=== PATIENT | male | born 1935 | race Caucasian/White ===

== ENCOUNTER 2017-04-23 16:45 | Emergency (ER) | payer OTHER ==
[~2017-04-23] VITALS: Ht 172.7 cm; Wt 83.2 kg
[~2017-04-23 16:45] MED LIST: ALLERGY10 M1 PO; AMLODIPINE BESY10 MG PO; ASPIR 8181 M1 PO; METOPROLOL SUC100 MG PO; PLAVIX75 MG PO; PROSCAR5 MG PO; SIMVASTATIN10 MG PO
[2017-04-23 17:17] LABS: HEMATOCRIT 38.8 % (38.0-50.0); MCH 25.9 PG (29.0-34.0); MCHC 32.7 G/DL (30.0-36.0); MEAN PLAT.VOLUME 10.1 uM^3 (9.0-12.4); PLATELET COUNT 204 K/uL (156-360); RBC DIS.WIDTH-CV 16.1 % (11.8-14.6); RBC DIS.WIDTH-SD 46.2 % (39-53); RED BLOOD COUNT 4.91 M/uL (4.00-5.50); WHITE BLOOD COUNT 6.8 K/uL (4.1-10.2)
[2017-04-23 17:32] LABS: CHLORIDE 108 mEq/L (99-109); POTASSIUM 3.8 mEq/L (3.7-5.4); SODIUM 139 mEq/L (136-147)
[2017-04-23 17:34] LABS: GLUCOSE 181 mg/dL (70-99)
[2017-04-23 17:35] LABS: ANION GAP 8 MEQ/L (2-14)
[2017-04-23 17:38] LABS: GFR ESTIMATE (CALCULATED) 48 mL/min/; UREA NITROGEN (BUN) 13 mg/dL (9-23)
[2017-04-23 17:40] LABS: LIPASE 26 U/L (1.0-51.0)
[2017-04-23 17:55] LABS: ALKALINE PHOSPHATASE 55 IU/L (3-129); TOTAL BILIRUBIN 0.4 mg/dL (0.0-1.0)
[2017-04-23] MEDS ORDERED: CIPRO500 MG PO (21:55)
[2017-04-23] MEDS ORDERED: FLAGYL500 MG PO (21:56)
[2017-04-23 22:27] VITALS: BP 145/81
== END 2017-04-23 22:27 | disposition home or self-care (01) ==
LOC: EME 16:45
DX: K52.9 Noninfective gastroenteritis and colitis, unspecified (principal); R10.9 Unspecified abdominal pain; K64.9 Unspecified hemorrhoids; I10 Essential (primary) hypertension; K21.9 Gastro-esophageal reflux disease without esophagitis; Z86.73 Personal history of transient ischemic attack (TIA), and cerebral infarction without residual deficits; Z85.038 Personal history of other malignant neoplasm of large intestine; Z87.442 Personal history of urinary calculi; Z90.49 Acquired absence of other specified parts of digestive tract
CPT/HCPCS: 74177; 80048; 80053; 83690; 85027; 86900; 86901; J2270

== ENCOUNTER 2017-05-04 17:06 | Inpatient (IN) | payer OTHER ==
[~2017-05-04] VITALS: Ht 172.7 cm; Wt 77.1 kg
[~2017-05-04 17:06] MED LIST changes: +CIPRO500 MG PO; +FLAGYL500 MG PO
[2017-05-04 18:18] LABS: HEMATOCRIT 39.5 % (38.0-50.0); MCH 25.6 PG (29.0-34.0); MCHC 31.9 G/DL (30.0-36.0); MCV 80.3 FL (86-99); MEAN PLAT.VOLUME 9.9 uM^3 (9.0-12.4); PLATELET COUNT 226 K/uL (156-360); RBC DIS.WIDTH-CV 16.4 % (11.8-14.6); RED BLOOD COUNT 4.92 M/uL (4.00-5.50); WHITE BLOOD COUNT 7.6 K/uL (4.1-10.2)
[2017-05-04 18:31] LABS: CHLORIDE 109 mEq/L (99-109); POTASSIUM 4.4 mEq/L (3.7-5.4); SODIUM 140 mEq/L (136-147)
[2017-05-04 18:34] LABS: GLUCOSE 133 mg/dL (70-99)
[2017-05-04 18:35] LABS: ANION GAP 10 MEQ/L (2-14); TOTAL BILIRUBIN 0.5 mg/dL (0.0-1.0)
[2017-05-04 18:37] LABS: ALKALINE PHOSPHATASE 52 IU/L (3-129); GFR ESTIMATE (CALCULATED) 44 mL/min/
[2017-05-04 18:38] LABS: UREA NITROGEN (BUN) 16 mg/dL (9-23)
[2017-05-04 23:00] LABS: ADD MIUA? YES; BILIRUBIN NEGATIVE; BLOOD NEGATIVE; COLOR YELLOW ((YELLOW)); GLUCOSE (STRIP) NEGATIVE; KETONES 5; LEUKOCYTES NEGATIVE; NITRITE NEGATIVE; PROTEIN (STRIP) 100; SPECIFIC GRAVITY 1.016 (1.000-1.030); UROBILINOGEN 0.2 MG/DL (0.2-1.0)
[2017-05-04 23:20] LABS: BACTERIA NONE SEEN /HPF; EPITHELIAL CELLS RARE /HPF; HYALINE CASTS 0-5 /LPF; MUCUS TRACE /LPF; RED BLOOD CELLS 0-5 /HPF (0-5); UCUL ADDED? NO; WHITE BLOOD CELLS 0-5 /HPF (0-5)
[2017-05-05] MEDS ORDERED: LO-DOSE ASPIRIN81 M1 PO (00:25)
[2017-05-05 05:59] LABS: EOSINOPHIL COUNT 0.2 K/uL (0-0.3); HEMATOCRIT 38.2 % (38.0-50.0); IMMATURE GRANULOCYTE (%) 0.5 % (0.0-0.7); INSTRUMENT ABS NEUTROPHIL CT 3.5 K/uL; LYMPHOCYTE COUNT 1.2 K/uL (1.0-2.8); MCH 25.6 PG (29.0-34.0); MCHC 31.7 G/DL (30.0-36.0); MCV 80.9 FL (86-99); MEAN PLAT.VOLUME 9.9 uM^3 (9.0-12.4); MONOCYTE (%) 11.8 % (3-12); MONOCYTE COUNT 0.7 K/uL (0-0.8); NEUTROPHIL (%) 62.3 % (45-76); NEUTROPHIL COUNT 3.5 K/uL (1.8-6.4); PLATELET COUNT 198 K/uL (156-360); RBC DIS.WIDTH-CV 16.4 % (11.8-14.6); RBC DIS.WIDTH-SD 48.3 % (39-53); RED BLOOD COUNT 4.72 M/uL (4.00-5.50); WHITE BLOOD COUNT 5.7 K/uL (4.1-10.2)
[2017-05-05 06:24] LABS: CHLORIDE 111 mEq/L (99-109); POTASSIUM 4.2 mEq/L (3.7-5.4); SODIUM 141 mEq/L (136-147)
[2017-05-05 06:26] LABS: GLUCOSE 114 mg/dL (70-99)
[2017-05-05 06:27] LABS: ANION GAP 9 MEQ/L (2-14)
[2017-05-05 06:30] LABS: GFR ESTIMATE (CALCULATED) 56 mL/min/
[2017-05-05 06:31] LABS: UREA NITROGEN (BUN) 13 mg/dL (9-23)
[2017-05-05 09:59] VITALS: BP 156/73
[2017-05-05 10:13] LABS: INTERNAL CONTROL VALID? YES
[2017-05-05 11:20] LABS: C DIFF TOXIN NEGATIVE (NEGATIVE)
[2017-05-05 11:21] LABS: PROBE CHECK PASS; SPECIMEN PROCESSING CONTROL PASS
[2017-05-05 12:32] VITALS: BP 142/72
[2017-05-05 17:00] VITALS: BP 136/74
[2017-05-06 00:02] VITALS: BP 144/70
[2017-05-06 07:20] VITALS: BP 137/70
[2017-05-06 10:25] LABS: HEMATOCRIT 38.4 % (38.0-50.0); MCH 26.1 PG (29.0-34.0); MCV 81.5 FL (86-99); MEAN PLAT.VOLUME 10.4 uM^3 (9.0-12.4); PLATELET COUNT 195 K/uL (156-360); RBC DIS.WIDTH-CV 16.3 % (11.8-14.6); RED BLOOD COUNT 4.71 M/uL (4.00-5.50)
[2017-05-06 10:50] LABS: ALKALINE PHOSPHATASE 57 IU/L (3-129); ANION GAP 8 MEQ/L (2-14); CHLORIDE 109 MEQ/L (99-109); GFR ESTIMATE (CALCULATED) 56 mL/min/; SAMPLE HEMOLYSIS CHECK 0; SAMPLE ICTERIC CHECK 0; SAMPLE LIPEMIA CHECK 0; SODIUM 140 MEQ/L (136-147); TOTAL BILIRUBIN 0.5 MG/DL (0.0-1.0); UREA NITROGEN (BUN) 8 mg/dL (9-23)
[2017-05-06 10:51] LABS: GLUCOSE 189 mg/dL (70-99)
[2017-05-06] MEDS ORDERED: FLAGYL500 MG PO (11:05)
[2017-05-06] MEDS ORDERED: CIPRO500 MG PO (11:05)
== END 2017-05-06 12:42 | disposition home or self-care (01) | DRG 392 ==
LOC: EME 17:06 → 4SOUTH 05-05 02:38 → EDOF 05-05 02:38 → 4SOUTH 05-05 08:29
PROVIDERS: Hospitalist
DX: K52.9 Noninfective gastroenteritis and colitis, unspecified (principal); N17.9 Acute kidney failure, unspecified; I10 Essential (primary) hypertension; E11.9 Type 2 diabetes mellitus without complications; K21.9 Gastro-esophageal reflux disease without esophagitis; Z85.038 Personal history of other malignant neoplasm of large intestine; E78.5 Hyperlipidemia, unspecified; Z95.0 Presence of cardiac pacemaker; Z86.73 Personal history of transient ischemic attack (TIA), and cerebral infarction without residual deficits
CPT/HCPCS: 74176; 80048; 80053; 81003; 82272; 85025; 85027; 87493; 99281; 99284; J1644; J2270; J2405; J2543; J7030; J7050

== ENCOUNTER 2017-05-25 05:39 | Inpatient (IN) | payer OTHER ==
[~2017-05-25] VITALS: Ht 172.7 cm; Wt 73.8 kg
[~2017-05-25 05:39] MED LIST changes: +LO-DOSE ASPIRIN81 M1 PO; -METOPROLOL SUC100 MG PO; +METOPROLOL SUCC25 MG PO
[2017-05-25 06:38] LABS: EOSINOPHIL (%) 2.1 % (0-5); EOSINOPHIL COUNT 0.1 K/uL (0-0.3); HEMATOCRIT 37.5 % (38.0-50.0); IMMATURE GRANULOCYTE (%) 0.2 % (0.0-0.7); INSTRUMENT ABS NEUTROPHIL CT 3.8 K/uL; LYMPHOCYTE COUNT 0.8 K/uL (1.0-2.8); MCH 25.9 PG (29.0-34.0); MCHC 32.3 G/DL (30.0-36.0); MCV 80.1 FL (86-99); MEAN PLAT.VOLUME 10.4 uM^3 (9.0-12.4); MONOCYTE (%) 10.5 % (3-12); MONOCYTE COUNT 0.6 K/uL (0-0.8); NEUTROPHIL (%) 72.1 % (45-76); NEUTROPHIL COUNT 3.8 K/uL (1.8-6.4); PLATELET COUNT 190 K/uL (156-360); RBC DIS.WIDTH-CV 16.4 % (11.8-14.6); RBC DIS.WIDTH-SD 47.8 % (39-53); RED BLOOD COUNT 4.68 M/uL (4.00-5.50); WHITE BLOOD COUNT 5.3 K/uL (4.1-10.2)
[2017-05-25 07:08] LABS: ALKALINE PHOSPHATASE 45 IU/L (3-129); ANION GAP 9 MEQ/L (2-14); CHLORIDE 109 MEQ/L (99-109); GFR ESTIMATE (CALCULATED) > 59 mL/min/; GLUCOSE 176 mg/dL (70-99); LIPASE 31 U/L (1.0-51.0); POTASSIUM 3.3 MEQ/L (3.7-5.4); SAMPLE HEMOLYSIS CHECK 0; SAMPLE ICTERIC CHECK 0; SAMPLE LIPEMIA CHECK 0; SODIUM 140 MEQ/L (136-147); TOTAL BILIRUBIN 0.4 MG/DL (0.0-1.0); UREA NITROGEN (BUN) 13 mg/dL (9-23)
[2017-05-25 15:03] VITALS: BP 162/75
[2017-05-25 19:38] VITALS: BP 133/68
[2017-05-25 20:03] LABS: INTERNAL CONTROL VALID? YES
[2017-05-25 20:33] LABS: C DIFF TOXIN NEGATIVE (NEGATIVE)
[2017-05-25 20:35] LABS: PROBE CHECK PASS; SPECIMEN PROCESSING CONTROL PASS
[2017-05-25 23:34] VITALS: BP 143/67
[2017-05-26 04:00] VITALS: BP 140/71
[2017-05-26 06:10] LABS: HEMATOCRIT 36.6 % (38.0-50.0); MCH 26.3 PG (29.0-34.0); MCHC 32.8 G/DL (30.0-36.0); MCV 80.1 FL (86-99); MEAN PLAT.VOLUME 10.9 uM^3 (9.0-12.4); PLATELET COUNT 175 K/uL (156-360); RBC DIS.WIDTH-CV 16.4 % (11.8-14.6); RBC DIS.WIDTH-SD 47.7 % (39-53); RED BLOOD COUNT 4.57 M/uL (4.00-5.50); WHITE BLOOD COUNT 5.2 K/uL (4.1-10.2)
[2017-05-26 06:39] LABS: ANION GAP 7 MEQ/L (2-14); CHLORIDE 107 MEQ/L (99-109); GFR ESTIMATE (CALCULATED) > 59 mL/min/; GLUCOSE 123 mg/dL (70-99); POTASSIUM 4.1 MEQ/L (3.7-5.4); SAMPLE HEMOLYSIS CHECK 0; SAMPLE ICTERIC CHECK 0; SAMPLE LIPEMIA CHECK 0; SODIUM 138 MEQ/L (136-147); UREA NITROGEN (BUN) 7 mg/dL (9-23)
[2017-05-26 08:06] VITALS: BP 138/68
[2017-05-26 14:58] VITALS: BP 140/65
[2017-05-26 20:05] VITALS: BP 138/67
[2017-05-27 04:00] VITALS: BP 157/77
[2017-05-27 07:30] VITALS: BP 140/76
[2017-05-27 09:08] LABS: HEMATOCRIT 41.9 % (38.0-50.0); MCH 25.9 PG (29.0-34.0); MCHC 32.2 G/DL (30.0-36.0); MCV 80.4 FL (86-99); MEAN PLAT.VOLUME 10.3 uM^3 (9.0-12.4); PLATELET COUNT 218 K/uL (156-360); RBC DIS.WIDTH-CV 16.3 % (11.8-14.6); RBC DIS.WIDTH-SD 47.7 % (39-53); RED BLOOD COUNT 5.21 M/uL (4.00-5.50); WHITE BLOOD COUNT 6.8 K/uL (4.1-10.2)
[2017-05-27 09:34] LABS: ANION GAP 9 MEQ/L (2-14); CHLORIDE 104 MEQ/L (99-109); GFR ESTIMATE (CALCULATED) > 59 mL/min/; GLUCOSE 144 mg/dL (70-99); MAGNESIUM 1.7 mg/dl (1.3-2.7); SAMPLE HEMOLYSIS CHECK 0; SAMPLE ICTERIC CHECK 0; SAMPLE LIPEMIA CHECK 0; SODIUM 136 MEQ/L (136-147); UREA NITROGEN (BUN) 7 mg/dL (9-23)
[2017-05-27 12:50] VITALS: BP 107/52
[2017-05-27 15:14] VITALS: BP 123/59
[2017-05-27 20:10] VITALS: BP 119/60
[2017-05-28 00:42] VITALS: BP 129/63
[2017-05-28 04:15] VITALS: BP 134/66
[2017-05-28 08:13] VITALS: BP 131/69
[2017-05-28 08:59] LABS: HEMATOCRIT 38.2 % (38.0-50.0); MCH 26.8 PG (29.0-34.0); MCHC 33.2 G/DL (30.0-36.0); MCV 80.6 FL (86-99); MEAN PLAT.VOLUME 11.1 uM^3 (9.0-12.4); PLATELET COUNT 188 K/uL (156-360); RBC DIS.WIDTH-CV 16.6 % (11.8-14.6); RED BLOOD COUNT 4.74 M/uL (4.00-5.50); WHITE BLOOD COUNT 4.6 K/uL (4.1-10.2)
[2017-05-28 09:21] LABS: ANION GAP 10 MEQ/L (2-14); CHLORIDE 105 MEQ/L (99-109); GFR ESTIMATE (CALCULATED) > 59 mL/min/; GLUCOSE 145 mg/dL (70-99); SAMPLE HEMOLYSIS CHECK 0; SAMPLE ICTERIC CHECK 0; SAMPLE LIPEMIA CHECK 0; SODIUM 136 MEQ/L (136-147); UREA NITROGEN (BUN) 7 mg/dL (9-23)
[2017-05-28 12:00] VITALS: BP 144/71
[2017-05-28 16:00] VITALS: BP 137/68
[2017-05-28 23:37] VITALS: BP 145/72
[2017-05-29 08:25] VITALS: BP 142/81
[2017-05-29 18:04] VITALS: BP 132/66
[2017-05-30 00:15] VITALS: BP 142/73
[2017-05-30 06:34] LABS: MCH 26.3 PG (29.0-34.0); MCHC 32.9 G/DL (30.0-36.0); MEAN PLAT.VOLUME 10.7 uM^3 (9.0-12.4); PLATELET COUNT 217 K/uL (156-360); RBC DIS.WIDTH-CV 16.9 % (11.8-14.6); RBC DIS.WIDTH-SD 49.3 % (39-53); RED BLOOD COUNT 4.75 M/uL (4.00-5.50); WHITE BLOOD COUNT 6.3 K/uL (4.1-10.2)
[2017-05-30 06:45] VITALS: BP 136/76
[2017-05-30 06:57] LABS: ALKALINE PHOSPHATASE 43 IU/L (3-129); ANION GAP 8 MEQ/L (2-14); CHLORIDE 102 MEQ/L (99-109); GFR ESTIMATE (CALCULATED) > 59 mL/min/; GLUCOSE 119 mg/dL (70-99); MAGNESIUM 1.7 mg/dl (1.3-2.7); POTASSIUM 4.1 MEQ/L (3.7-5.4); SAMPLE HEMOLYSIS CHECK 0; SAMPLE ICTERIC CHECK 0; SAMPLE LIPEMIA CHECK 0; SODIUM 133 MEQ/L (136-147); TOTAL BILIRUBIN 0.4 MG/DL (0.0-1.0); UREA NITROGEN (BUN) 8 mg/dL (9-23)
[2017-05-30 15:00] VITALS: BP 132/72
[2017-05-30 18:44] VITALS: BP 156/75
[2017-05-30 23:23] VITALS: BP 128/67
[2017-05-31 06:13] LABS: HEMATOCRIT 36.8 % (38.0-50.0); MCH 25.7 PG (29.0-34.0); MCHC 31.8 G/DL (30.0-36.0); MCV 80.9 FL (86-99); MEAN PLAT.VOLUME 10.9 uM^3 (9.0-12.4); PLATELET COUNT 206 K/uL (156-360); RBC DIS.WIDTH-CV 16.6 % (11.8-14.6); RBC DIS.WIDTH-SD 49.1 % (39-53); RED BLOOD COUNT 4.55 M/uL (4.00-5.50); WHITE BLOOD COUNT 7.3 K/uL (4.1-10.2)
[2017-05-31 06:38] LABS: ANION GAP 9 MEQ/L (2-14); CHLORIDE 104 MEQ/L (99-109); GFR ESTIMATE (CALCULATED) > 59 mL/min/; GLUCOSE 124 mg/dL (70-99); POTASSIUM 4.6 MEQ/L (3.7-5.4); SAMPLE HEMOLYSIS CHECK 0; SAMPLE ICTERIC CHECK 0; SAMPLE LIPEMIA CHECK 0; SODIUM 136 MEQ/L (136-147); UREA NITROGEN (BUN) 12 mg/dL (9-23)
[2017-05-31 07:30] VITALS: BP 147/71
[2017-05-31 11:27] LABS: C DIFF TOXIN ND (NEGATIVE)
[2017-05-31 15:25] VITALS: BP 144/73
[2017-05-31 23:03] VITALS: BP 133/72
[2017-06-01 06:24] LABS: HEMATOCRIT 37.8 % (38.0-50.0); MCH 25.8 PG (29.0-34.0); MCHC 32.5 G/DL (30.0-36.0); MCV 79.4 FL (86-99); MEAN PLAT.VOLUME 10.7 uM^3 (9.0-12.4); PLATELET COUNT 210 K/uL (156-360); RBC DIS.WIDTH-CV 16.7 % (11.8-14.6); RBC DIS.WIDTH-SD 48.1 % (39-53); RED BLOOD COUNT 4.76 M/uL (4.00-5.50)
[2017-06-01 06:52] LABS: ALKALINE PHOSPHATASE 40 IU/L (3-129); ANION GAP 9 MEQ/L (2-14); CHLORIDE 102 MEQ/L (99-109); DIRECT BILIRUBIN 0.1 mg/dL (0.0-0.3); GFR ESTIMATE (CALCULATED) > 59 mL/min/; GLUCOSE 114 mg/dL (70-99); MAGNESIUM 1.7 mg/dl (1.3-2.7); POTASSIUM 4.3 MEQ/L (3.7-5.4); PREALBUMIN 16.9 mg/dL (10-40); SAMPLE HEMOLYSIS CHECK 0; SAMPLE ICTERIC CHECK 0; SAMPLE LIPEMIA CHECK 0; SODIUM 134 MEQ/L (136-147); TOTAL BILIRUBIN 0.4 MG/DL (0.0-1.0); TRIGLYCERIDES 115 MG/DL (Normal: <150); UREA NITROGEN (BUN) 11 mg/dL (9-23)
[2017-06-01 07:26] VITALS: BP 128/68
[2017-06-01 16:00] VITALS: BP 137/70
[2017-06-02 06:33] LABS: HEMATOCRIT 37.8 % (38.0-50.0); MCH 25.8 PG (29.0-34.0); MCHC 32.3 G/DL (30.0-36.0); MCV 80.1 FL (86-99); MEAN PLAT.VOLUME 10.4 uM^3 (9.0-12.4); PLATELET COUNT 208 K/uL (156-360); RBC DIS.WIDTH-CV 16.7 % (11.8-14.6); RED BLOOD COUNT 4.72 M/uL (4.00-5.50); WHITE BLOOD COUNT 8.6 K/uL (4.1-10.2)
[2017-06-02 06:35] VITALS: BP 146/78
[2017-06-02 07:22] LABS: ALKALINE PHOSPHATASE 35 IU/L (3-129); ANION GAP 9 MEQ/L (2-14); CHLORIDE 104 MEQ/L (99-109); GFR ESTIMATE (CALCULATED) > 59 mL/min/; GLUCOSE 134 mg/dL (70-99); MAGNESIUM 1.8 mg/dl (1.3-2.7); POTASSIUM 3.9 MEQ/L (3.7-5.4); SAMPLE HEMOLYSIS CHECK 0; SAMPLE ICTERIC CHECK 0; SAMPLE LIPEMIA CHECK 0; SODIUM 136 MEQ/L (136-147); TOTAL BILIRUBIN 0.4 MG/DL (0.0-1.0); UREA NITROGEN (BUN) 14 mg/dL (9-23)
[2017-06-02 10:35] VITALS: BP 131/71
[2017-06-02 14:55] VITALS: BP 125/76
[2017-06-02 20:19] VITALS: BP 137/72
[2017-06-02 22:24] VITALS: BP 127/61
[2017-06-03 07:26] LABS: ANION GAP 10 MEQ/L (2-14); CHLORIDE 106 MEQ/L (99-109); GFR ESTIMATE (CALCULATED) > 59 mL/min/; GLUCOSE 120 mg/dL (70-99); POTASSIUM 3.8 MEQ/L (3.7-5.4); SAMPLE HEMOLYSIS CHECK 0; SAMPLE ICTERIC CHECK 0; SAMPLE LIPEMIA CHECK 0; SODIUM 140 MEQ/L (136-147); UREA NITROGEN (BUN) 15 mg/dL (9-23)
[2017-06-03 07:27] LABS: MAGNESIUM 2.2 mg/dl (1.3-2.7)
[2017-06-03 07:35] VITALS: BP 144/74
[2017-06-03 10:40] VITALS: BP 149/82
[2017-06-03 15:40] VITALS: BP 142/69
[2017-06-04 08:26] LABS: ANION GAP 9 MEQ/L (2-14); CHLORIDE 108 MEQ/L (99-109); GFR ESTIMATE (CALCULATED) > 59 mL/min/; GLUCOSE 154 mg/dL (70-99); MAGNESIUM 2.1 mg/dl (1.3-2.7); POTASSIUM 4.1 MEQ/L (3.7-5.4); SAMPLE HEMOLYSIS CHECK 0; SAMPLE ICTERIC CHECK 0; SAMPLE LIPEMIA CHECK 0; SODIUM 139 MEQ/L (136-147); UREA NITROGEN (BUN) 16 mg/dL (9-23)
[2017-06-04 08:32] VITALS: BP 141/73
[2017-06-04 15:57] VITALS: BP 115/57
[2017-06-04 19:35] VITALS: BP 133/76
[2017-06-05 04:50] VITALS: BP 121/69
[2017-06-05 06:44] LABS: HEMATOCRIT 38.7 % (38.0-50.0); MCH 25.7 PG (29.0-34.0); MCV 80.1 FL (86-99); MEAN PLAT.VOLUME 10.5 uM^3 (9.0-12.4); PLATELET COUNT 197 K/uL (156-360); RBC DIS.WIDTH-CV 16.7 % (11.8-14.6); RBC DIS.WIDTH-SD 48.5 % (39-53); RED BLOOD COUNT 4.83 M/uL (4.00-5.50); WHITE BLOOD COUNT 7.4 K/uL (4.1-10.2)
[2017-06-05 07:09] LABS: ANION GAP 9 MEQ/L (2-14); CHLORIDE 108 MEQ/L (99-109); GFR ESTIMATE (CALCULATED) > 59 mL/min/; GLUCOSE 192 mg/dL (70-99); MAGNESIUM 2.1 mg/dl (1.3-2.7); POTASSIUM 4.1 MEQ/L (3.7-5.4); SAMPLE HEMOLYSIS CHECK 0; SAMPLE ICTERIC CHECK 0; SAMPLE LIPEMIA CHECK 0; SODIUM 138 MEQ/L (136-147); UREA NITROGEN (BUN) 19 mg/dL (9-23)
[2017-06-05 07:41] VITALS: BP 130/67
[2017-06-05 11:52] VITALS: BP 133/65
[2017-06-05 15:30] VITALS: BP 138/67
[2017-06-06 00:42] VITALS: BP 141/67
[2017-06-06 07:02] LABS: ANION GAP 7 MEQ/L (2-14); CHLORIDE 110 MEQ/L (99-109); GFR ESTIMATE (CALCULATED) > 59 mL/min/; GLUCOSE 143 mg/dL (70-99); MAGNESIUM 2.1 mg/dl (1.3-2.7); POTASSIUM 4.6 MEQ/L (3.7-5.4); SAMPLE HEMOLYSIS CHECK 0; SAMPLE ICTERIC CHECK 0; SAMPLE LIPEMIA CHECK 0; SODIUM 139 MEQ/L (136-147); UREA NITROGEN (BUN) 17 mg/dL (9-23)
[2017-06-06 07:30] VITALS: BP 131/69
[2017-06-06 17:57] VITALS: BP 120/58
[2017-06-06 23:35] VITALS: BP 124/63
[2017-06-07 05:58] LABS: EOSINOPHIL (%) 1.4 % (0-5); EOSINOPHIL COUNT 0.1 K/uL (0-0.3); HEMATOCRIT 38.2 % (38.0-50.0); IMMATURE GRANULOCYTE (%) 0.5 % (0.0-0.7); INSTRUMENT ABS NEUTROPHIL CT 6.8 K/uL; LYMPHOCYTE COUNT 0.7 K/uL (1.0-2.8); MCH 26.9 PG (29.0-34.0); MCV 81.4 FL (86-99); MEAN PLAT.VOLUME 10.9 uM^3 (9.0-12.4); MONOCYTE (%) 9.6 % (3-12); MONOCYTE COUNT 0.8 K/uL (0-0.8); NEUTROPHIL (%) 79.5 % (45-76); NEUTROPHIL COUNT 6.8 K/uL (1.8-6.4); PLATELET COUNT 202 K/uL (156-360); RBC DIS.WIDTH-CV 17.1 % (11.8-14.6); RBC DIS.WIDTH-SD 50.2 % (39-53); RED BLOOD COUNT 4.69 M/uL (4.00-5.50); WHITE BLOOD COUNT 8.5 K/uL (4.1-10.2)
[2017-06-07 06:21] LABS: ANION GAP 7 MEQ/L (2-14); CHLORIDE 109 MEQ/L (99-109); GFR ESTIMATE (CALCULATED) > 59 mL/min/; GLUCOSE 146 mg/dL (70-99); MAGNESIUM 2.2 mg/dl (1.3-2.7); POTASSIUM 4.6 MEQ/L (3.7-5.4); SAMPLE HEMOLYSIS CHECK 0; SAMPLE ICTERIC CHECK 0; SAMPLE LIPEMIA CHECK 0; SODIUM 139 MEQ/L (136-147); UREA NITROGEN (BUN) 20 mg/dL (9-23)
[2017-06-07 07:32] VITALS: BP 128/67
[2017-06-07 14:43] LABS: C DIFF TOXIN ND (NEGATIVE)
[2017-06-07 16:27] VITALS: BP 140/73
[2017-06-07 22:15] VITALS: BP 145/77
[2017-06-08 06:51] LABS: EOSINOPHIL (%) 0 % (0-5); HEMATOCRIT 33.2 % (38.0-50.0); IMMATURE GRANULOCYTE (%) 0.6 % (0.0-0.7); IMMATURE GRANULOCYTE COUNT 0.1 K/uL; INSTRUMENT ABS NEUTROPHIL CT 12.1 K/uL; LYMPHOCYTE COUNT 0.3 K/uL (1.0-2.8); MCH 26.2 PG (29.0-34.0); MCHC 32.8 G/DL (30.0-36.0); MCV 79.8 FL (86-99); MEAN PLAT.VOLUME 11.1 uM^3 (9.0-12.4); MONOCYTE (%) 1.8 % (3-12); MONOCYTE COUNT 0.2 K/uL (0-0.8); NEUTROPHIL (%) 95.4 % (45-76); NEUTROPHIL COUNT 12.1 K/uL (1.8-6.4); PLATELET COUNT 194 K/uL (156-360); RBC DIS.WIDTH-CV 16.4 % (11.8-14.6); RED BLOOD COUNT 4.16 M/uL (4.00-5.50); WHITE BLOOD COUNT 12.7 K/uL (4.1-10.2)
[2017-06-08 07:17] VITALS: BP 121/68
[2017-06-08 07:22] LABS: ANION GAP 10 MEQ/L (2-14); CHLORIDE 107 MEQ/L (99-109); DIRECT BILIRUBIN 0.1 mg/dL (0.0-0.3); GFR ESTIMATE (CALCULATED) > 59 mL/min/; GLUCOSE 215 mg/dL (70-99); PREALBUMIN 14.9 mg/dL (10-40); SAMPLE HEMOLYSIS CHECK 0; SAMPLE ICTERIC CHECK 0; SAMPLE LIPEMIA CHECK 0; SODIUM 136 MEQ/L (136-147); TOTAL BILIRUBIN 0.4 MG/DL (0.0-1.0); TRIGLYCERIDES 107 MG/DL (Normal: <150); UREA NITROGEN (BUN) 22 mg/dL (9-23)
[2017-06-08 07:23] LABS: ALKALINE PHOSPHATASE 66 IU/L (3-129)
[2017-06-08 15:14] VITALS: BP 127/67
[2017-06-08 23:21] VITALS: BP 125/61
[2017-06-09 06:37] LABS: HEMATOCRIT 32.7 % (38.0-50.0); MCH 26.9 PG (29.0-34.0); MCHC 33.3 G/DL (30.0-36.0); MCV 80.7 FL (86-99); MEAN PLAT.VOLUME 11.6 uM^3 (9.0-12.4); PLATELET COUNT 221 K/uL (156-360); RBC DIS.WIDTH-CV 16.9 % (11.8-14.6); RBC DIS.WIDTH-SD 49.2 % (39-53); RED BLOOD COUNT 4.05 M/uL (4.00-5.50); WHITE BLOOD COUNT 14.7 K/uL (4.1-10.2)
[2017-06-09 07:01] LABS: ANION GAP 8 MEQ/L (2-14); CHLORIDE 107 MEQ/L (99-109); GFR ESTIMATE (CALCULATED) > 59 mL/min/; GLUCOSE 234 mg/dL (70-99); MAGNESIUM 2.1 mg/dl (1.3-2.7); SAMPLE HEMOLYSIS CHECK 0; SAMPLE ICTERIC CHECK 0; SAMPLE LIPEMIA CHECK 0; SODIUM 138 MEQ/L (136-147); UREA NITROGEN (BUN) 26 mg/dL (9-23)
[2017-06-09 08:14] VITALS: BP 135/67
[2017-06-09 08:14] LABS: INTERNAL CONTROL VALID? YES
[2017-06-09 08:54] LABS: C DIFF TOXIN ND (NEGATIVE)
[2017-06-09 10:46] LABS: C DIFF TOXIN NEGATIVE (NEGATIVE)
[2017-06-09 10:48] LABS: PROBE CHECK PASS; SPECIMEN PROCESSING CONTROL PASS
[2017-06-09 11:24] LABS: URINE UREA NITROGEN 15246 MG/24 HR
[2017-06-09 16:33] VITALS: BP 128/61
[2017-06-09 23:17] VITALS: BP 137/71
[2017-06-10 07:07] LABS: ANION GAP 10 MEQ/L (2-14); CHLORIDE 108 MEQ/L (99-109); GFR ESTIMATE (CALCULATED) > 59 mL/min/; GLUCOSE 238 mg/dL (70-99); MAGNESIUM 2.1 mg/dl (1.3-2.7); POTASSIUM 4.7 MEQ/L (3.7-5.4); SAMPLE HEMOLYSIS CHECK 0; SAMPLE ICTERIC CHECK 0; SAMPLE LIPEMIA CHECK 0; SODIUM 139 MEQ/L (136-147); UREA NITROGEN (BUN) 27 mg/dL (9-23)
[2017-06-10 07:25] VITALS: BP 133/64
[2017-06-10 08:38] LABS: MCH 26.4 PG (29.0-34.0); MCHC 32.9 G/DL (30.0-36.0); MCV 80.2 FL (86-99); MEAN PLAT.VOLUME 11.1 uM^3 (9.0-12.4); PLATELET COUNT 240 K/uL (156-360); RBC DIS.WIDTH-CV 16.9 % (11.8-14.6); RED BLOOD COUNT 4.24 M/uL (4.00-5.50); WHITE BLOOD COUNT 14.8 K/uL (4.1-10.2)
[2017-06-10 16:43] VITALS: BP 151/77
[2017-06-10 23:38] VITALS: BP 133/71
[2017-06-11 07:22] LABS: ANION GAP 10 MEQ/L (2-14); CHLORIDE 106 MEQ/L (99-109); GFR ESTIMATE (CALCULATED) > 59 mL/min/; GLUCOSE 259 mg/dL (70-99); MAGNESIUM 2.1 mg/dl (1.3-2.7); POTASSIUM 4.2 MEQ/L (3.7-5.4); SAMPLE HEMOLYSIS CHECK 0; SAMPLE ICTERIC CHECK 0; SAMPLE LIPEMIA CHECK 0; SODIUM 139 MEQ/L (136-147); UREA NITROGEN (BUN) 32 mg/dL (9-23)
[2017-06-11 07:39] VITALS: BP 144/65
[2017-06-11 15:48] VITALS: BP 178/87
[2017-06-11 23:43] VITALS: BP 147/75
[2017-06-12 06:31] LABS: EOSINOPHIL (%) 0 % (0-5); HEMATOCRIT 36.3 % (38.0-50.0); IMMATURE GRANULOCYTE COUNT 0.2 K/uL; INSTRUMENT ABS NEUTROPHIL CT 18.4 K/uL; LYMPHOCYTE COUNT 0.4 K/uL (1.0-2.8); MCHC 32.5 G/DL (30.0-36.0); MEAN PLAT.VOLUME 11.5 uM^3 (9.0-12.4); MONOCYTE (%) 4.9 % (3-12); NEUTROPHIL (%) 91.8 % (45-76); NEUTROPHIL COUNT 18.4 K/uL (1.8-6.4); PLATELET COUNT 282 K/uL (156-360); RBC DIS.WIDTH-CV 16.7 % (11.8-14.6); RBC DIS.WIDTH-SD 47.9 % (39-53); RED BLOOD COUNT 4.54 M/uL (4.00-5.50)
[2017-06-12 06:59] LABS: ANION GAP 11 MEQ/L (2-14); CHLORIDE 104 MEQ/L (99-109); GFR ESTIMATE (CALCULATED) > 59 mL/min/; GLUCOSE 192 mg/dL (70-99); MAGNESIUM 1.8 mg/dl (1.3-2.7); POTASSIUM 4.2 MEQ/L (3.7-5.4); SAMPLE HEMOLYSIS CHECK 0; SAMPLE ICTERIC CHECK 0; SAMPLE LIPEMIA CHECK 0; SODIUM 140 MEQ/L (136-147); UREA NITROGEN (BUN) 25 mg/dL (9-23)
[2017-06-12 07:19] VITALS: BP 146/70
[2017-06-12 15:00] VITALS: BP 137/67
[2017-06-13 00:04] VITALS: BP 146/71
[2017-06-13 06:51] LABS: ALKALINE PHOSPHATASE 78 IU/L (3-129); ANION GAP 9 MEQ/L (2-14); CHLORIDE 101 MEQ/L (99-109); GFR ESTIMATE (CALCULATED) > 59 mL/min/; GLUCOSE 174 mg/dL (70-99); POTASSIUM 3.8 MEQ/L (3.7-5.4); SAMPLE HEMOLYSIS CHECK 0; SAMPLE ICTERIC CHECK 0; SAMPLE LIPEMIA CHECK 0; SODIUM 135 MEQ/L (136-147); UREA NITROGEN (BUN) 19 mg/dL (9-23)
[2017-06-13 06:52] LABS: ALKALINE PHOSPHATASE 69 IU/L (3-129); ANION GAP 8 MEQ/L (2-14); CHLORIDE 102 MEQ/L (99-109); DIRECT BILIRUBIN 0.1 mg/dL (0.0-0.3); GFR ESTIMATE (CALCULATED) > 59 mL/min/; GLUCOSE 172 mg/dL (70-99); MAGNESIUM 1.7 mg/dl (1.3-2.7); POTASSIUM 3.9 MEQ/L (3.7-5.4); PREALBUMIN 16.4 mg/dL (10-40); SAMPLE HEMOLYSIS CHECK 0; SAMPLE ICTERIC CHECK 0; SAMPLE LIPEMIA CHECK 0; SODIUM 136 MEQ/L (136-147); TOTAL BILIRUBIN 0.4 MG/DL (0.0-1.0); TOTAL BILIRUBIN 0.5 MG/DL (0.0-1.0); TRIGLYCERIDES 166 MG/DL (Normal: <150); UREA NITROGEN (BUN) 18 mg/dL (9-23)
[2017-06-13 08:23] VITALS: BP 142/68
[2017-06-14 00:15] VITALS: BP 140/66
[2017-06-14 06:13] LABS: MCHC 33.8 G/DL (30.0-36.0); MCV 79.8 FL (86-99); MEAN PLAT.VOLUME 11.2 uM^3 (9.0-12.4); PLATELET COUNT 248 K/uL (156-360); RBC DIS.WIDTH-CV 16.8 % (11.8-14.6); RBC DIS.WIDTH-SD 47.9 % (39-53); RED BLOOD COUNT 4.26 M/uL (4.00-5.50); WHITE BLOOD COUNT 21.5 K/uL (4.1-10.2)
[2017-06-14 06:39] LABS: ANION GAP 7 MEQ/L (2-14); CHLORIDE 102 MEQ/L (99-109); GFR ESTIMATE (CALCULATED) > 59 mL/min/; GLUCOSE 203 mg/dL (70-99); MAGNESIUM 1.9 mg/dl (1.3-2.7); POTASSIUM 4.2 MEQ/L (3.7-5.4); SAMPLE HEMOLYSIS CHECK 0; SAMPLE ICTERIC CHECK 0; SAMPLE LIPEMIA CHECK 0; SODIUM 134 MEQ/L (136-147); UREA NITROGEN (BUN) 22 mg/dL (9-23)
[2017-06-14 09:19] VITALS: BP 127/62
[2017-06-14 15:42] VITALS: BP 144/70
[2017-06-14 20:35] VITALS: BP 133/69
[2017-06-14 23:23] VITALS: BP 120/74
[2017-06-14 23:35] VITALS: BP 138/72
[2017-06-15 04:44] VITALS: BP 140/69
[2017-06-15 06:39] LABS: EOSINOPHIL (%) 0 % (0-5); HEMATOCRIT 33.4 % (38.0-50.0); IMMATURE GRANULOCYTE (%) 1.3 % (0.0-0.7); IMMATURE GRANULOCYTE COUNT 0.2 K/uL; INSTRUMENT ABS NEUTROPHIL CT 15.2 K/uL; LYMPHOCYTE COUNT 0.3 K/uL (1.0-2.8); MCH 26.2 PG (29.0-34.0); MCHC 32.9 G/DL (30.0-36.0); MCV 79.5 FL (86-99); MEAN PLAT.VOLUME 11.5 uM^3 (9.0-12.4); MONOCYTE (%) 3.6 % (3-12); MONOCYTE COUNT 0.6 K/uL (0-0.8); NEUTROPHIL (%) 93.3 % (45-76); NEUTROPHIL COUNT 15.2 K/uL (1.8-6.4); PLATELET COUNT 249 K/uL (156-360); RBC DIS.WIDTH-CV 16.6 % (11.8-14.6); RBC DIS.WIDTH-SD 48.5 % (39-53); WHITE BLOOD COUNT 16.3 K/uL (4.1-10.2)
[2017-06-15 07:15] LABS: ALKALINE PHOSPHATASE 57 IU/L (3-129); ANION GAP 8 MEQ/L (2-14); CHLORIDE 105 MEQ/L (99-109); DIRECT BILIRUBIN 0.1 mg/dL (0.0-0.3); GFR ESTIMATE (CALCULATED) > 59 mL/min/; GLUCOSE 242 mg/dL (70-99); MAGNESIUM 1.9 mg/dl (1.3-2.7); POTASSIUM 4.1 MEQ/L (3.7-5.4); PREALBUMIN 13.6 mg/dL (10-40); SAMPLE HEMOLYSIS CHECK 0; SAMPLE ICTERIC CHECK 0; SAMPLE LIPEMIA CHECK 0; SODIUM 137 MEQ/L (136-147); TRIGLYCERIDES 79 MG/DL (Normal: <150); UREA NITROGEN (BUN) 24 mg/dL (9-23)
[2017-06-15 07:19] LABS: TOTAL BILIRUBIN 0.3 MG/DL (0.0-1.0)
[2017-06-15 07:55] VITALS: BP 135/66
[2017-06-15 16:12] VITALS: BP 135/67
== END 2017-06-15 18:45 | disposition short-term general hospital (02) | DRG 394 ==
LOC: EME 05:39 → EDOF 09:56 → 5EAST 14:35
PROVIDERS: Emergency Medicine; Hospitalist; Internal Medicine; Internal Medicine Gastroenterology; Physician Assistant; Student in an Organized Health Care Education/Training Program; Surgery
PROC: 3E0436Z Introduction of Nutritional Substance into Central Vein, Percutaneous Approach (ICD-10-PCS; principal; 2017-06-01)
PROC: 0DJD8ZZ Inspection of Lower Intestinal Tract, Via Natural or Artificial Opening Endoscopic (ICD-10-PCS; 2017-06-03)
DX: K55.9 Vascular disorder of intestine, unspecified (principal); A09 Infectious gastroenteritis and colitis, unspecified; E87.6 Hypokalemia; E78.5 Hyperlipidemia, unspecified; Z85.038 Personal history of other malignant neoplasm of large intestine; Z95.0 Presence of cardiac pacemaker; K21.9 Gastro-esophageal reflux disease without esophagitis; N40.0 Benign prostatic hyperplasia without lower urinary tract symptoms; K56.7 Ileus, unspecified; E44.0 Moderate protein-calorie malnutrition; I25.10 Atherosclerotic heart disease of native coronary artery without angina pectoris; I12.9 Hypertensive chronic kidney disease with stage 1 through stage 4 chronic kidney disease, or unspecified chronic kidney disease; G45.9 Transient cerebral ischemic attack, unspecified; N18.9 Chronic kidney disease, unspecified; R18.8 Other ascites; Z86.73 Personal history of transient ischemic attack (TIA), and cerebral infarction without residual deficits; Z87.442 Personal history of urinary calculi; Z90.49 Acquired absence of other specified parts of digestive tract; Z80.0 Family history of malignant neoplasm of digestive organs; Z82.3 Family history of stroke; Z82.49 Family history of ischemic heart disease and other diseases of the circulatory system
CPT/HCPCS: 71010; 74000; 74020; 74177; 76937; 80048; 80053; 80076; 81050; 82248; 82378; 83605; 83630; 83690; 83735; 84100; 84134; 84478; 84540; 84630 90; 85025; 85027; 85651; 87040; 87493; 87506; 88305; 94799; 99281; 99285; C9113; G0378; J0744; J1170; J1650; J1956; J2270; J2405; J2765; J2920; J2930; J3480; J7030; J7512; S0028; S0030

== ENCOUNTER 2017-06-30 09:36 | Inpatient (IN) | payer OTHER ==
[~2017-06-30] VITALS: Ht 172.7 cm; Wt 74.0 kg
[2017-06-30 10:16] LABS: EOSINOPHIL (%) 0 % (0-5); HEMATOCRIT 26.8 % (38.0-50.0); IMMATURE GRANULOCYTE (%) 0.3 % (0.0-0.7); INSTRUMENT ABS NEUTROPHIL CT 8.2 K/uL; LYMPHOCYTE COUNT 0.3 K/uL (1.0-2.8); MCH 26.8 PG (29.0-34.0); MCHC 32.1 G/DL (30.0-36.0); MONOCYTE (%) 2.9 % (3-12); MONOCYTE COUNT 0.3 K/uL (0-0.8); NEUTROPHIL (%) 93.9 % (45-76); NEUTROPHIL COUNT 8.2 K/uL (1.8-6.4); PLATELET COUNT 239 K/uL (156-360); RBC DIS.WIDTH-CV 16.8 % (11.8-14.6); RBC DIS.WIDTH-SD 51.1 % (39-53); WHITE BLOOD COUNT 8.7 K/uL (4.1-10.2)
[2017-06-30 10:20] LABS: MCV 83.5 FL (86-99); RED BLOOD COUNT 3.21 M/uL (4.00-5.50)
[2017-06-30 10:25] LABS: CHLORIDE 100 mEq/L (99-109); POTASSIUM 4.9 mEq/L (3.7-5.4); SODIUM 131 mEq/L (136-147)
[2017-06-30 10:27] LABS: GLUCOSE 180 mg/dL (70-99)
[2017-06-30 10:29] LABS: ANION GAP 7 MEQ/L (2-14); TOTAL BILIRUBIN 0.7 mg/dL (0.0-1.0)
[2017-06-30 10:31] LABS: ALKALINE PHOSPHATASE 71 IU/L (3-129); GFR ESTIMATE (CALCULATED) 52 mL/min/
[2017-06-30 10:32] LABS: UREA NITROGEN (BUN) 13 mg/dL (9-23)
[2017-06-30 15:24] LABS: INTER. NORMALIZED RATIO 1.4; PROTHROMBIN TIME 15.8 SEC (10.2-12.9)
[2017-06-30 15:27] LABS: PTT 25.8 SEC (25-37)
[2017-06-30] MEDS ORDERED: PANTOPRAZOLE SO40 MG PO (15:53)
[2017-06-30] MEDS ORDERED: LOPERAMIDE2 MG PO (15:54)
[2017-06-30] MEDS ORDERED: VALSARTAN40 MG PO (15:55)
[2017-06-30] MEDS ORDERED: FINASTERIDE5 MG PO (15:55)
[2017-06-30] MEDS ORDERED: WELCHOL625 MG PO (16:01)
[2017-06-30] MEDS ORDERED: DILAUDID2 MG PO (16:03)
[2017-06-30] MEDS ORDERED: ZOFRAN ODT4 MG PO (16:03)
[2017-06-30] MEDS ORDERED: MORPHINE SULFAT15 M1 PO (16:04)
[2017-06-30] MEDS ORDERED: PREDNISONE5 MG PO (16:11)
[2017-06-30 20:52] VITALS: BP 96/58
[2017-06-30 21:00] VITALS: BP 106/60
[2017-06-30 21:31] LABS: HEMATOCRIT 33.5 % (38.0-50.0); MCH 27.6 PG (29.0-34.0); MCHC 31.9 G/DL (30.0-36.0); MCV 86.6 FL (86-99); MEAN PLAT.VOLUME 9.4 uM^3 (9.0-12.4); PLATELET COUNT 219 K/uL (156-360); RBC DIS.WIDTH-SD 50.2 % (39-53); RED BLOOD COUNT 3.87 M/uL (4.00-5.50); WHITE BLOOD COUNT 12.9 K/uL (4.1-10.2)
[2017-06-30 21:38] LABS: ANION GAP 7 MEQ/L (2-14); CHLORIDE 109 MEQ/L (99-109); GFR ESTIMATE (CALCULATED) > 59 mL/min/; GLUCOSE 239 mg/dL (70-99); POTASSIUM 4.8 MEQ/L (3.7-5.4); SAMPLE HEMOLYSIS CHECK 0; SAMPLE ICTERIC CHECK 0; SAMPLE LIPEMIA CHECK 0; SODIUM 133 MEQ/L (136-147); UREA NITROGEN (BUN) 11 mg/dL (9-23)
[2017-06-30 22:00] VITALS: BP 85/45
[2017-06-30 22:48] LABS: METH RESISTANT S AUREUS PCR NEGATIVE (NEGATIVE)
[2017-06-30 22:58] LABS: PROBE CHECK PASS; SPECIMEN PROCESSING CONTROL PASS
[2017-06-30 23:00] VITALS: BP 90/50
[2017-07-01] VITALS (16 sets, daily range): BP systolic 85–116; BP diastolic 43–73
[2017-07-01 05:39] LABS: HEMATOCRIT 30.3 % (38.0-50.0); MCH 27.7 PG (29.0-34.0); MCHC 32.7 G/DL (30.0-36.0); MCV 84.9 FL (86-99); RBC DIS.WIDTH-CV 15.9 % (11.8-14.6); RBC DIS.WIDTH-SD 49.3 % (39-53); RED BLOOD COUNT 3.57 M/uL (4.00-5.50); WHITE BLOOD COUNT 10.8 K/uL (4.1-10.2)
[2017-07-01 05:42] LABS: INTER. NORMALIZED RATIO 1.5
[2017-07-01 05:44] LABS: PTT 28.4 SEC (25-37)
[2017-07-01 06:19] LABS: ALKALINE PHOSPHATASE 42 IU/L (3-129); ANION GAP 7 MEQ/L (2-14); CHLORIDE 108 MEQ/L (99-109); DIRECT BILIRUBIN 0.6 mg/dL (0.0-0.3); GFR ESTIMATE (CALCULATED) > 59 mL/min/; GLUCOSE 258 mg/dL (70-99); MAGNESIUM 1.5 mg/dl (1.3-2.7); POTASSIUM 4.5 MEQ/L (3.7-5.4); PREALBUMIN 8.7 mg/dL (10-40); SAMPLE HEMOLYSIS CHECK 0; SAMPLE ICTERIC CHECK 0; SAMPLE LIPEMIA CHECK 0; SODIUM 135 MEQ/L (136-147); TOTAL BILIRUBIN 1.1 MG/DL (0.0-1.0); TRIGLYCERIDES 70 MG/DL (Normal: <150); UREA NITROGEN (BUN) 11 mg/dL (9-23)
[2017-07-01 07:04] LABS: EOSINOPHIL (%) 0 % (0-5); IMMATURE GRANULOCYTE (%) 0.3 % (0.0-0.7); INSTRUMENT ABS NEUTROPHIL CT 10.2 K/uL; LYMPHOCYTE COUNT 0.3 K/uL (1.0-2.8); MEAN PLAT.VOLUME 10.4 uM^3 (9.0-12.4); MONOCYTE (%) 2.7 % (3-12); MONOCYTE COUNT 0.3 K/uL (0-0.8); NEUTROPHIL (%) 94.6 % (45-76); NEUTROPHIL COUNT 10.2 K/uL (1.8-6.4); PLATELET COUNT 220 K/uL (156-360)
[2017-07-01 15:27] LABS: POINT-OF-CARE METER ID UU14208751
[2017-07-01 18:42] LABS: POINT-OF-CARE METER ID UU14208751
[2017-07-01 23:01] LABS: POINT-OF-CARE METER ID UU13113748; POINT-OF-CARE USER ID PHATLC
[2017-07-02] VITALS (10 sets, daily range): BP systolic 115–133; BP diastolic 55–70
[2017-07-02 02:26] LABS: POINT-OF-CARE METER ID UU13113748; POINT-OF-CARE USER ID PHATLC
[2017-07-02 06:19] LABS: POINT-OF-CARE METER ID UU14174217
[2017-07-02 10:34] LABS: HEMATOCRIT 26.4 % (38.0-50.0); MCH 27.9 PG (29.0-34.0); MCV 84.6 FL (86-99); MEAN PLAT.VOLUME 9.7 uM^3 (9.0-12.4); PLATELET COUNT 213 K/uL (156-360); RBC DIS.WIDTH-CV 16.2 % (11.8-14.6); RBC DIS.WIDTH-SD 50.2 % (39-53); RED BLOOD COUNT 3.12 M/uL (4.00-5.50); WHITE BLOOD COUNT 7.7 K/uL (4.1-10.2)
[2017-07-02 11:19] LABS: ANION GAP 7 MEQ/L (2-14); CHLORIDE 110 MEQ/L (99-109); GFR ESTIMATE (CALCULATED) > 59 mL/min/; GLUCOSE 198 mg/dL (70-99); POTASSIUM 3.6 MEQ/L (3.7-5.4); SAMPLE HEMOLYSIS CHECK 0; SAMPLE ICTERIC CHECK 0; SAMPLE LIPEMIA CHECK 0; SODIUM 139 MEQ/L (136-147); UREA NITROGEN (BUN) 12 mg/dL (9-23)
[2017-07-02 11:24] LABS: MAGNESIUM 2.1 mg/dl (1.3-2.7)
[2017-07-02 12:34] LABS: POINT-OF-CARE METER ID UU14208751
[2017-07-02 17:15] LABS: POINT-OF-CARE METER ID UU13113748
[2017-07-02 18:13] LABS: HEMATOCRIT 25.8 % (38.0-50.0); MCV 84.3 FL (86-99)
[2017-07-03 04:00] VITALS: BP 128/62
[2017-07-03 04:51] LABS: INTER. NORMALIZED RATIO 1.2; PROTHROMBIN TIME 13.5 SEC (10.2-12.9)
[2017-07-03 04:54] LABS: HEMATOCRIT 26.3 % (38.0-50.0); MCH 27.4 PG (29.0-34.0); MCHC 33.1 G/DL (30.0-36.0); MCV 82.7 FL (86-99); MEAN PLAT.VOLUME 9.9 uM^3 (9.0-12.4); PLATELET COUNT 239 K/uL (156-360); PTT 26.8 SEC (25-37); RBC DIS.WIDTH-CV 16.4 % (11.8-14.6); RBC DIS.WIDTH-SD 49.9 % (39-53); RED BLOOD COUNT 3.18 M/uL (4.00-5.50); WHITE BLOOD COUNT 6.4 K/uL (4.1-10.2)
[2017-07-03 05:02] LABS: CHLORIDE 110 mEq/L (99-109); POTASSIUM 3.8 mEq/L (3.7-5.4); SODIUM 140 mEq/L (136-147)
[2017-07-03 05:03] LABS: MAGNESIUM 1.9 mg/dL (1.3-2.7)
[2017-07-03 05:04] LABS: GLUCOSE 194 mg/dL (70-99)
[2017-07-03 05:06] LABS: ANION GAP 8 MEQ/L (2-14)
[2017-07-03 05:08] LABS: GFR ESTIMATE (CALCULATED) > 59 mL/min/
[2017-07-03 05:09] LABS: UREA NITROGEN (BUN) 13 mg/dL (9-23)
[2017-07-03 05:38] LABS: POINT-OF-CARE METER ID UU13113698
[2017-07-03 07:41] VITALS: BP 123/59
[2017-07-03 11:43] VITALS: BP 128/66
[2017-07-03 12:19] LABS: POINT-OF-CARE METER ID UU13113803; POINT-OF-CARE USER ID NUTSLF44
[2017-07-03 15:43] VITALS: BP 133/70
[2017-07-03 17:19] LABS: POINT-OF-CARE METER ID UU13113698; POINT-OF-CARE USER ID NUTSLF44
[2017-07-03 20:08] VITALS: BP 135/68
[2017-07-03 23:02] VITALS: BP 129/68
[2017-07-03 23:30] LABS: POINT-OF-CARE METER ID UU13113698
[2017-07-04 04:46] VITALS: BP 124/64
[2017-07-04 06:12] LABS: POINT-OF-CARE METER ID UU13113803
[2017-07-04 06:21] LABS: MCH 28.2 PG (29.0-34.0); MCHC 33.8 G/DL (30.0-36.0); MCV 83.6 FL (86-99); MEAN PLAT.VOLUME 10.1 uM^3 (9.0-12.4); PLATELET COUNT 241 K/uL (156-360); RBC DIS.WIDTH-CV 16.6 % (11.8-14.6); RBC DIS.WIDTH-SD 51.3 % (39-53); RED BLOOD COUNT 2.87 M/uL (4.00-5.50)
[2017-07-04 06:56] LABS: ANION GAP 7 MEQ/L (2-14); CHLORIDE 111 MEQ/L (99-109); GFR ESTIMATE (CALCULATED) > 59 mL/min/; GLUCOSE 155 mg/dL (70-99); MAGNESIUM 2.1 mg/dl (1.3-2.7); SAMPLE HEMOLYSIS CHECK 0; SAMPLE ICTERIC CHECK 0; SAMPLE LIPEMIA CHECK 0; SODIUM 142 MEQ/L (136-147); UREA NITROGEN (BUN) 15 mg/dL (9-23)
[2017-07-04 08:45] VITALS: BP 146/71
[2017-07-04 12:15] LABS: POINT-OF-CARE METER ID UU13113781; POINT-OF-CARE USER ID ENVKC36
[2017-07-04 12:24] VITALS: BP 135/66
[2017-07-04 15:55] VITALS: BP 128/73
[2017-07-04 17:42] LABS: POINT-OF-CARE USER ID ENVKC36
[2017-07-04 19:00] VITALS: BP 145/71
[2017-07-04 23:00] VITALS: BP 134/86
[2017-07-05 04:00] VITALS: BP 140/77
[2017-07-05 06:03] LABS: HEMATOCRIT 26.4 % (38.0-50.0); MEAN PLAT.VOLUME 10.2 uM^3 (9.0-12.4); PLATELET COUNT 271 K/uL (156-360); RBC DIS.WIDTH-CV 17.6 % (11.8-14.6); RBC DIS.WIDTH-SD 59.1 % (39-53); WHITE BLOOD COUNT 4.4 K/uL (4.1-10.2)
[2017-07-05 06:25] LABS: POINT-OF-CARE METER ID UU13113698
[2017-07-05 08:25] VITALS: BP 120/63
[2017-07-05 09:06] LABS: ANION GAP 6 MEQ/L (2-14); CHLORIDE 107 MEQ/L (99-109); MAGNESIUM 2.2 mg/dl (1.3-2.7); POTASSIUM 4.1 MEQ/L (3.7-5.4); SAMPLE HEMOLYSIS CHECK 0; SAMPLE ICTERIC CHECK 0; SAMPLE LIPEMIA CHECK 0; SODIUM 139 MEQ/L (136-147)
[2017-07-05 09:12] LABS: GFR ESTIMATE (CALCULATED) > 59 mL/min/; GLUCOSE 210 mg/dL (70-99); UREA NITROGEN (BUN) 15 mg/dL (9-23)
[2017-07-05 11:08] LABS: POINT-OF-CARE METER ID UU13113698
[2017-07-05 11:51] VITALS: BP 115/71
[2017-07-05 16:16] LABS: POINT-OF-CARE METER ID UU13113698
[2017-07-05 17:03] VITALS: BP 105/69
[2017-07-05 19:15] VITALS: BP 125/83
[2017-07-05 23:00] VITALS: BP 117/71
[2017-07-05 23:23] LABS: POINT-OF-CARE METER ID UU13113698
[2017-07-06 03:00] VITALS: BP 130/61
[2017-07-06 05:54] LABS: EOSINOPHIL (%) 2.7 % (0-5); EOSINOPHIL COUNT 0.1 K/uL (0-0.3); IMMATURE GRANULOCYTE (%) 0.7 % (0.0-0.7); INSTRUMENT ABS NEUTROPHIL CT 3.2 K/uL; LYMPHOCYTE COUNT 0.5 K/uL (1.0-2.8); MCH 31.2 PG (29.0-34.0); MCHC 33.8 G/DL (30.0-36.0); MCV 92.2 FL (86-99); MEAN PLAT.VOLUME 10.8 uM^3 (9.0-12.4); MONOCYTE (%) 5.2 % (3-12); MONOCYTE COUNT 0.2 K/uL (0-0.8); NEUTROPHIL (%) 78.7 % (45-76); NEUTROPHIL COUNT 3.2 K/uL (1.8-6.4); PLATELET COUNT 267 K/uL (156-360); RBC DIS.WIDTH-CV 18.1 % (11.8-14.6); RED BLOOD COUNT 2.82 M/uL (4.00-5.50)
[2017-07-06 07:45] VITALS: BP 142/76
[2017-07-06 08:53] LABS: ANION GAP 6 MEQ/L (2-14); CHLORIDE 108 MEQ/L (99-109); GFR ESTIMATE (CALCULATED) > 59 mL/min/; GLUCOSE 173 mg/dL (70-99); MAGNESIUM 2.3 mg/dl (1.3-2.7); POTASSIUM 4.7 MEQ/L (3.7-5.4); PREALBUMIN 12.7 mg/dL (10-40); SAMPLE HEMOLYSIS CHECK 0; SAMPLE ICTERIC CHECK 0; SAMPLE LIPEMIA CHECK 0; SODIUM 141 MEQ/L (136-147); TRIGLYCERIDES 94 MG/DL (Normal: <150); UREA NITROGEN (BUN) 16 mg/dL (9-23)
[2017-07-06 09:12] LABS: ALKALINE PHOSPHATASE 101 IU/L (3-129); DIRECT BILIRUBIN 0.1 mg/dL (0.0-0.3); TOTAL BILIRUBIN 0.4 MG/DL (0.0-1.0)
[2017-07-06 11:51] VITALS: BP 133/72
[2017-07-06 12:13] LABS: POINT-OF-CARE USER ID NUTSLF44
[2017-07-06 15:49] VITALS: BP 134/65
[2017-07-06 17:59] LABS: POINT-OF-CARE USER ID NUTSLF44
[2017-07-06 20:00] VITALS: BP 139/69
[2017-07-06 23:55] VITALS: BP 144/75
[2017-07-07 04:00] VITALS: BP 132/63
[2017-07-07 05:33] LABS: HEMATOCRIT 25.2 % (38.0-50.0); MCH 27.2 PG (29.0-34.0); MCHC 32.9 G/DL (30.0-36.0); MEAN PLAT.VOLUME 10.4 uM^3 (9.0-12.4); PLATELET COUNT 316 K/uL (156-360); RBC DIS.WIDTH-SD 51.1 % (39-53); RED BLOOD COUNT 3.05 M/uL (4.00-5.50); WHITE BLOOD COUNT 4.5 K/uL (4.1-10.2)
[2017-07-07 05:43] LABS: MCV 82.6 FL (86-99)
[2017-07-07 05:54] LABS: ANION GAP 8 MEQ/L (2-14); CHLORIDE 108 MEQ/L (99-109); GFR ESTIMATE (CALCULATED) > 59 mL/min/; GLUCOSE 193 mg/dL (70-99); MAGNESIUM 2.1 mg/dl (1.3-2.7); POTASSIUM 4.2 MEQ/L (3.7-5.4); SAMPLE HEMOLYSIS CHECK 0; SAMPLE ICTERIC CHECK 0; SAMPLE LIPEMIA CHECK 0; SODIUM 142 MEQ/L (136-147); UREA NITROGEN (BUN) 16 mg/dL (9-23)
[2017-07-07 07:57] VITALS: BP 132/72
[2017-07-07 11:07] LABS: URINE UREA NITROGEN 11456 MG/24 HR
[2017-07-07 11:09] VITALS: BP 147/69
[2017-07-07 16:31] VITALS: BP 125/64
[2017-07-07 20:00] VITALS: BP 141/67
[2017-07-07 23:55] VITALS: BP 130/70
[2017-07-08] VITALS (7 sets, daily range): BP systolic 118–136; BP diastolic 60–69
[2017-07-08 05:48] LABS: HEMATOCRIT 26.3 % (38.0-50.0); MCH 26.3 PG (29.0-34.0); MCHC 32.3 G/DL (30.0-36.0); MCV 81.4 FL (86-99); MEAN PLAT.VOLUME 10.8 uM^3 (9.0-12.4); PLATELET COUNT 338 K/uL (156-360); RBC DIS.WIDTH-SD 50.7 % (39-53); RED BLOOD COUNT 3.23 M/uL (4.00-5.50); WHITE BLOOD COUNT 5.9 K/uL (4.1-10.2)
[2017-07-08 06:08] LABS: ANION GAP 7 MEQ/L (2-14); CHLORIDE 107 MEQ/L (99-109); GFR ESTIMATE (CALCULATED) > 59 mL/min/; GLUCOSE 196 mg/dL (70-99); POTASSIUM 3.8 MEQ/L (3.7-5.4); SAMPLE HEMOLYSIS CHECK 0; SAMPLE ICTERIC CHECK 0; SAMPLE LIPEMIA CHECK 0; SODIUM 140 MEQ/L (136-147); UREA NITROGEN (BUN) 15 mg/dL (9-23)
[2017-07-08 21:21] LABS: POINT-OF-CARE METER ID UU14208753
[2017-07-09 03:51] VITALS: BP 120/63
[2017-07-09 06:15] LABS: HEMATOCRIT 27.9 % (38.0-50.0); MCH 26.7 PG (29.0-34.0); MCHC 32.3 G/DL (30.0-36.0); MCV 82.8 FL (86-99); NRBC (%) 0.1 /100 WBC (0-0); PLATELET COUNT 368 K/uL (156-360); RBC DIS.WIDTH-CV 17.5 % (11.8-14.6); RBC DIS.WIDTH-SD 52.6 % (39-53); RED BLOOD COUNT 3.37 M/uL (4.00-5.50); WHITE BLOOD COUNT 13.6 K/uL (4.1-10.2)
[2017-07-09 06:34] LABS: POINT-OF-CARE METER ID UU14188577
[2017-07-09 06:37] LABS: ANION GAP 7 MEQ/L (2-14); CHLORIDE 108 MEQ/L (99-109); GFR ESTIMATE (CALCULATED) > 59 mL/min/; GLUCOSE 173 mg/dL (70-99); SAMPLE HEMOLYSIS CHECK 1; SAMPLE ICTERIC CHECK 0; SAMPLE LIPEMIA CHECK 0; SODIUM 139 MEQ/L (136-147); UREA NITROGEN (BUN) 22 mg/dL (9-23)
[2017-07-09 06:43] LABS: MAGNESIUM 2.4 mg/dl (1.3-2.7); POTASSIUM 5.1 MEQ/L (3.7-5.4)
[2017-07-09 07:58] VITALS: BP 116/62
[2017-07-09 11:28] VITALS: BP 118/83
[2017-07-09 11:33] LABS: POINT-OF-CARE METER ID UU14188577
[2017-07-09] MEDS ORDERED: OXYCODONE HCL5 MG PO (15:20)
[2017-07-09 16:23] VITALS: BP 117/59
[2017-07-09 16:45] LABS: POINT-OF-CARE METER ID UU14208753
[2017-07-09 18:15] LABS: ADD MIUA? YES; BILIRUBIN NEGATIVE; BLOOD NEGATIVE; COLOR YELLOW ((YELLOW)); GLUCOSE (STRIP) 50; KETONES NEGATIVE; LEUKOCYTES NEGATIVE; NITRITE NEGATIVE; PROTEIN (STRIP) 30; SPECIFIC GRAVITY 1.021 (1.000-1.030); UROBILINOGEN 0.2 MG/DL (0.2-1.0)
[2017-07-09 18:25] LABS: BACTERIA RARE /HPF; EPITHELIAL CELLS RARE /HPF; MUCUS 1+ /LPF; RED BLOOD CELLS 0-5 /HPF (0-5); UCUL ADDED? NO; WHITE BLOOD CELLS 0-5 /HPF (0-5)
[2017-07-09 19:14] VITALS: BP 98/56
[2017-07-09 21:28] LABS: POINT-OF-CARE METER ID UU14188577
[2017-07-09 23:54] VITALS: BP 136/63
[2017-07-10 03:08] VITALS: BP 120/61
[2017-07-10 06:31] LABS: POINT-OF-CARE METER ID UU14188577
[2017-07-10 06:33] LABS: HEMATOCRIT 26.9 % (38.0-50.0); MCH 27.1 PG (29.0-34.0); MCHC 33.1 G/DL (30.0-36.0); MCV 81.8 FL (86-99); MEAN PLAT.VOLUME 10.5 uM^3 (9.0-12.4); PLATELET COUNT 397 K/uL (156-360); RBC DIS.WIDTH-CV 17.8 % (11.8-14.6); RBC DIS.WIDTH-SD 52.3 % (39-53); RED BLOOD COUNT 3.29 M/uL (4.00-5.50); WHITE BLOOD COUNT 9.6 K/uL (4.1-10.2)
[2017-07-10 06:55] LABS: ANION GAP 10 MEQ/L (2-14); CHLORIDE 108 MEQ/L (99-109); GFR ESTIMATE (CALCULATED) > 59 mL/min/; GLUCOSE 182 mg/dL (70-99); MAGNESIUM 2.2 mg/dl (1.3-2.7); SAMPLE HEMOLYSIS CHECK 0; SAMPLE ICTERIC CHECK 0; SAMPLE LIPEMIA CHECK 0; SODIUM 139 MEQ/L (136-147); UREA NITROGEN (BUN) 30 mg/dL (9-23)
[2017-07-10 08:27] VITALS: BP 119/61
[2017-07-10 11:58] VITALS: BP 123/69
[2017-07-10 16:12] VITALS: BP 109/57
[2017-07-10 19:43] VITALS: BP 115/64
[2017-07-10 21:53] LABS: POINT-OF-CARE METER ID UU14208753
[2017-07-11] VITALS (7 sets, daily range): BP systolic 105–128; BP diastolic 56–63
[2017-07-11 08:47] LABS: ANION GAP 10 MEQ/L (2-14); CHLORIDE 110 MEQ/L (99-109); GFR ESTIMATE (CALCULATED) > 59 mL/min/; GLUCOSE 226 mg/dL (70-99); MAGNESIUM 2.4 mg/dl (1.3-2.7); POTASSIUM 4.8 MEQ/L (3.7-5.4); SAMPLE HEMOLYSIS CHECK 0; SAMPLE ICTERIC CHECK 0; SAMPLE LIPEMIA CHECK 0; SODIUM 139 MEQ/L (136-147); UREA NITROGEN (BUN) 46 mg/dL (9-23)
[2017-07-11 11:14] LABS: POINT-OF-CARE METER ID UU14208753
[2017-07-11 16:34] LABS: Estimated Average Glucose 154 mg/dL (70-123)
[2017-07-11 21:52] LABS: POINT-OF-CARE METER ID UU14208753
[2017-07-12 04:47] VITALS: BP 125/62
[2017-07-12 06:46] LABS: POINT-OF-CARE METER ID UU14188577
[2017-07-12 07:51] VITALS: BP 133/62
[2017-07-12 08:34] LABS: ANION GAP 11 MEQ/L (2-14); CHLORIDE 110 MEQ/L (99-109); GFR ESTIMATE (CALCULATED) > 59 mL/min/; GLUCOSE 193 mg/dL (70-99); POTASSIUM 4.6 MEQ/L (3.7-5.4); SAMPLE HEMOLYSIS CHECK 0; SAMPLE ICTERIC CHECK 0; SAMPLE LIPEMIA CHECK 0; SODIUM 140 MEQ/L (136-147); UREA NITROGEN (BUN) 41 mg/dL (9-23)
[2017-07-12 11:15] VITALS: BP 105/59
[2017-07-12 11:29] LABS: POINT-OF-CARE METER ID UU14188577
[2017-07-12 16:14] VITALS: BP 115/59
[2017-07-12 19:57] VITALS: BP 112/65
[2017-07-12 23:12] VITALS: BP 115/60
[2017-07-13 03:46] VITALS: BP 112/58
[2017-07-13 06:06] LABS: EOSINOPHIL (%) 0.8 % (0-5); EOSINOPHIL COUNT 0.1 K/uL (0-0.3); HEMATOCRIT 23.9 % (38.0-50.0); IMMATURE GRANULOCYTE (%) 1.4 % (0.0-0.7); IMMATURE GRANULOCYTE COUNT 0.1 K/uL; INSTRUMENT ABS NEUTROPHIL CT 6.6 K/uL; LYMPHOCYTE COUNT 1.1 K/uL (1.0-2.8); MCH 27.1 PG (29.0-34.0); MCHC 33.1 G/DL (30.0-36.0); MCV 81.8 FL (86-99); MEAN PLAT.VOLUME 10.7 uM^3 (9.0-12.4); MONOCYTE (%) 6.1 % (3-12); MONOCYTE COUNT 0.5 K/uL (0-0.8); NEUTROPHIL (%) 78.8 % (45-76); NEUTROPHIL COUNT 6.6 K/uL (1.8-6.4); PLATELET COUNT 492 K/uL (156-360); RBC DIS.WIDTH-CV 18.5 % (11.8-14.6); RBC DIS.WIDTH-SD 55.2 % (39-53); RED BLOOD COUNT 2.92 M/uL (4.00-5.50); WHITE BLOOD COUNT 8.4 K/uL (4.1-10.2)
[2017-07-13 06:47] LABS: POINT-OF-CARE METER ID UU14117124
[2017-07-13 07:07] LABS: ALKALINE PHOSPHATASE 95 IU/L (3-129); ANION GAP 10 MEQ/L (2-14); CHLORIDE 112 MEQ/L (99-109); DIRECT BILIRUBIN 0.1 mg/dL (0.0-0.3); GFR ESTIMATE (CALCULATED) > 59 mL/min/; MAGNESIUM 1.9 mg/dl (1.3-2.7); POTASSIUM 5.1 MEQ/L (3.7-5.4); PREALBUMIN 10.6 mg/dL (10-40); SAMPLE HEMOLYSIS CHECK 0; SAMPLE ICTERIC CHECK 0; SAMPLE LIPEMIA CHECK 0; SODIUM 143 MEQ/L (136-147); TRIGLYCERIDES 68 MG/DL (Normal: <150); UREA NITROGEN (BUN) 36 mg/dL (9-23)
[2017-07-13 07:09] LABS: GLUCOSE 76 mg/dL (70-99); TOTAL BILIRUBIN 0.2 MG/DL (0.0-1.0)
[2017-07-13 07:51] VITALS: BP 127/59
[2017-07-13 11:16] LABS: POINT-OF-CARE METER ID UU14188577
[2017-07-13 11:27] VITALS: BP 109/56
[2017-07-13] MEDS ORDERED: METOCLOPRAMIDE10 MG PO (11:47)
[2017-07-13] MEDS ORDERED: BACTRIM,SEPT1 TABLET PO (11:47)
[2017-07-13] MEDS ORDERED: GLIPIZIDE5 MG PO (11:47)
[2017-07-13] MEDS ORDERED: LOPRESSOR50 MG PO (11:47)
[2017-07-13] MEDS ORDERED: METRONIDAZOLE500 MG PO (11:47)
[2017-07-13] MEDS ORDERED: NIFEREX-150,FE150 MG PO (11:47)
[2017-07-13] MEDS ORDERED: FLUCONAZOLE200 MG PO (11:47)
== END 2017-07-13 14:51 | DRG 393 ==
LOC: EME 09:36 → ENRESERV 19:29 → SDC 20:49 → 4EAST 20:50 → 4WEST 20:50 → ENRESERV 07-02 22:24 → 4EAST 07-02 23:19 → ENRESERV 07-08 19:20 → 3EAST 07-08 20:16
PROVIDERS: Emergency Medicine; Physician Assistant; Surgery
PROC: 3E0436Z Introduction of Nutritional Substance into Central Vein, Percutaneous Approach (ICD-10-PCS; principal; 2017-07-01)
DX: K63.1 Perforation of intestine (nontraumatic) (principal); K65.0 Generalized (acute) peritonitis; Z95.0 Presence of cardiac pacemaker; Z95.810 Presence of automatic (implantable) cardiac defibrillator; Z86.73 Personal history of transient ischemic attack (TIA), and cerebral infarction without residual deficits; E78.5 Hyperlipidemia, unspecified; I44.2 Atrioventricular block, complete; I47.2 Ventricular tachycardia; I25.10 Atherosclerotic heart disease of native coronary artery without angina pectoris; I25.5 Ischemic cardiomyopathy; I12.9 Hypertensive chronic kidney disease with stage 1 through stage 4 chronic kidney disease, or unspecified chronic kidney disease; E11.65 Type 2 diabetes mellitus with hyperglycemia; E11.22 Type 2 diabetes mellitus with diabetic chronic kidney disease; E44.0 Moderate protein-calorie malnutrition; Z68.24 Body mass index [BMI] 24.0-24.9, adult
CPT/HCPCS: 71010; 74177; 76937; 80048; 80048 91; 80053; 80076; 81003; 81050; 82248; 82330; 82948; 83036; 83605; 83735; 83880; 84100; 84134; 84478; 84540; 84630 90; 85014; 85018; 85025; 85027; 85610; 85730; 86900; 86901; 86920; 87040; 87070; 87075; 87076; 87106; 87205; 87641; 88307; 93005; 94799; 97530 GO; 97530 GP; 99281; 99285; C1769; C1781; J0330; J0610; J1100; J1170; J1644; J1815; J2270; J2405; J2543; J2710; J2765; J3010; J3475; J7030; J7040; J7042; J7050; P9016; P9045; S0028